=== PATIENT | female | born 1995 | race Caucasian/White ===

== ENCOUNTER 2024-09-15 00:08 | Day surgery (SDC) | payer BC, SELFPAY ==
[2024-09-04 13:43] VITALS: BMI 22.9
--- NOTE | 2024-09-04 14:13 | PC.NURSE ---
Report to the Outpatient Waiting Room, entrance under the green pavilion located off [facility], at time _0730 on date __09/15/24 . Planned Procedure Time: __929 .? Time changes happen often and if your time is changed the preop area will call you the afternoon before. - You and your visitor will be asked to self-screen and do not enter if you have any COVID symptoms. Please call surgeon if you need to reschedule. - A mask is optional within the hospital at this time. Patients may have clear liquids (water, carbonated beverages, clear teas, apple juice) until 3 hours prior to surgery with a maximum of 20 ounces. - No food from midnight until time of surgery and no smoking. This includes no chewing gum, candy or mints. - Infants may have breast milk until 4 hours before surgery, infant formula 6 hours prior to surgery. - Children will be allowed to drink immediately following surgery.? If applicable, please bring a bottle or sippy cup to assist with drinking. Juice, water, soda, and popsicles are readily available.? For infants on formula, please bring formula the day of surgery.? Pacifiers are allowed. Take only the following medications with a SIP of water on the morning of surgery: _Buspirone, and sertraline DO NOT STOP ANY OF YOUR OTHER PRESCRIPTION MEDICATIONS PRIOR TO SURGERY EXCEPT THE FOLLOWING Medications to discontinue per physician ___Vitamins and supplements 3 days prior Please no make-up, nail cymraes, hairspray, perfume, deodorant, or body powder the day of surgery.? No jewelry (including any body piercings) or valuables the day of surgery, leave them at home.? Please take a shower or bath the night before, or the morning of, surgery with an antibacterial soap.? Wear comfortable, loose fitting clothing.? Children are encouraged to wear pajamas. - Jewelry must be removed prior to entering the operating room.? Rings and piercings that are not removed may be cut off. - The hospital will not accept responsibility for valuables.? - Please leave all valuables, including medications, at home the day of surgery. If you are going home after surgery, a licensed route cdl driver must drive you home.? - NO public transportation without another adult if you receive anesthesia. - We recommend that an adult stay with you for 24 hours following discharge. - We also recommend that you do not drive, make important decision, drink alcoholic beverages, or take any drugs that were not prescribed by your health care provider for at least 24 hours after your discharge time. For Pediatric surgeries, we recommend two adults accompany the child home. Hold all vitamins and supplements for 3 days per anesthesiologist. Follow any additional instructions given to you from your surgeon. Telephone instructions given to _Audra and asked if any additional questions and then verbalized understanding. Patient advised to call surgeon office or pre surgery nurse liaison [phone] if any additional questions.
--- NOTE | 2024-09-12 12:28 | PM.IMHP ---
H&P: HPI History of Present Illness Date/Time: 09/12/24 12:28 Chief Complaint: irregular bleeding and thickened endometrium Narrative: this is a 28-year-old 0 admitted for hysteroscopy dilatation curettage secondary to excessive heavy bleeding. Ultrasound shows thickened endometrium. She is offered hysteroscopy and dilatation curettage. Risks and benefits reviewed including not exclusive of , aspiration pneumonia, bleeding, transfusion, perforation injury to bowel, bladder, ureters, or other internal organs with need for open laparotomy. She received the [employer] handouts entitled hysteroscopy as well as dilatation curettage. She had all questions answered. She asked to proceed Review of Systems Review of Systems: All systems reviewed & are unremarkable except as noted in HPI and below PMFSH Social History Social History Smoking status: Never smoker Living arrangements: with family Spiritual care concerns: No Meds Home Medications and Allergies Home Medications ?Medication ?Instructions ?Recorded ?Confirmed ?Type Lactobacillus rhamnosus GG 10 1 cap PO DAILY 09/04/24 09/04/24 History billion cell capsule (Culturelle) buspirone 10 mg tablet 10 mg PO BID 09/04/24 09/04/24 History cetirizine 10 mg tablet 10 mg PO DAILY 09/04/24 09/04/24 History cranberry 500 mg capsule 500 mg PO DAILY 09/04/24 09/04/24 History lysine 500 mg tablet 500 mg PO DAILY 09/04/24 09/04/24 History multivitamin 1 tablet PO DAILY 09/04/24 09/04/24 History sertraline 50 mg tablet 50 mg PO DAILY 09/04/24 09/04/24 History Allergies Allergy/AdvReac Type Severity Reaction Status Date / Time Penicillins Allergy Mild rash Verified 09/04/24 13:59 Exam Const: General: cooperative, healthy appearing, comfortable and average body habitus Orientation/consciousness: oriented to person, oriented to place and oriented to time Resp: Effort & Inspection: normal respiratory effort Cardio: Rate: regular rate Rhythm: regular rhythm Heart sounds: S1 normal heart sound present and S2 normal heart sound present GI: Inspection: normal to inspection : External Female Exam: normal external appearance Speculum Exam - Vagina: normal appearance of the vagina Speculum Exam - Cervix: normal appearance of the cervix Bimanual exam- vagina & uterus: uterine shape normal Bimanual Exam- Adnexa, other: normal adnexae Assessment and Plan Assessment and plan (1) Excessive bleeding: Code(s): R58 - Hemorrhage, not elsewhere classified Status: Acute Plan proceed with hysteroscopy / dilatation and curettage
--- NOTE | 2024-09-15 07:16 | WPDHPUPDATE1 ---
History and Physical Update Update Date/Time: 09/15/24 07:16 History and Physical has been reviewed, including an updated exam of the patient. There are NO changes in the patient's condition. Risks, benefits, and alternatives have been discussed and questions answered. Patient agrees to proceed with procedure.
--- NOTE | 2024-09-15 07:59 | P.PNAN_ITS ---
Anes - Initial Pre Proc Eval Procedure: Operation Date: 09/15/24 09:30 Proposed Procedures p Hysteroscopy Dilation and Curettage - Calvin Bledsoe MD Date/Time: 09/15/24 07:59 Surgeon: Calvin Bledsoe MD Pre Op Diagnosis: Irg Bleeding, Dyspareunia Patient Data Age: 28 Gender: F Height: 1.78 m Weight: 72.57 kg Allergies Allergy/AdvReac Type Severity Reaction Status Date / Time Penicillins Allergy Mild rash Verified 09/04/24 13:59 Home Medications ?Medication ?Instructions ?Recorded ?Confirmed ?Type Lactobacillus rhamnosus GG 10 1 cap PO DAILY 09/04/24 09/04/24 History billion cell capsule (Culturelle) buspirone 10 mg tablet 10 mg PO BID 09/04/24 09/04/24 History cetirizine 10 mg tablet 10 mg PO DAILY 09/04/24 09/04/24 History cranberry 500 mg capsule 500 mg PO DAILY 09/04/24 09/04/24 History lysine 500 mg tablet 500 mg PO DAILY 09/04/24 09/04/24 History multivitamin 1 tablet PO DAILY 09/04/24 09/04/24 History sertraline 50 mg tablet 50 mg PO DAILY 09/04/24 09/04/24 History hydrocodone 5 mg-acetaminophen 325 1 tablet PO Q4H PRN pain #14 tabs 09/15/24 Rx mg tablet Patient hx anesthesia problems: none Family hx anesthesia problems: none Results Review: All pre-operative results and documents have been reviewed as part of the pre- operative evaluation. [facility] Past Medical History Medical History (Updated 09/15/24 @ 07:59 by Calvin Flores MD) Depression Social History Social History Smoking status: Never smoker Living arrangements: with family Spiritual care concerns: No Anes - Eval Final PreProcedure Day of Procedure 09/15/24 07:59 Patient weight: normal Heart: regular rate and rhythm Lungs: clear to auscultation Airway: Mallampati scale class II Neurological: alert and oriented Last oral intake: >/= 8 hours ASA classification: II Emergent: no Anesthetic plan: proceed Anesthesia type and monitoring: general GIVS and standard monitoring Results Review: All pre-operative results and documents have been reviewed as part of the pre- operative evaluation. Informed Consent: The patient's anesthetic plan and its attendant risks and benefits were discussed with the patient/family/POA. Questions were solicited and answers provided to the satisfaction of the patient/family/POA.
[2024-09-15 08:15] VITALS: BP 102/62; PULSE 73; RESP 14; TEMP 36.6; O2SAT 100
[2024-09-15] MEDS: LACTATED RINGERS 1,000 ML 30 ML IV CONT (08:15)
[2024-09-15] MEDS: ACETAMINOPHEN 500 MG TABLET 1000 MG PO (08:15)
[2024-09-15 08:22] LABS: BEDSIDEPREGUCG Negative (Negative)
[2024-09-15] MEDS: LIDOCAINE 1% LOCAL INJ 10 ML VIAL INFILTRATE (09:10)
--- NOTE | 2024-09-15 09:21 | W.PM.PROC2 ---
Procedure Note - Detailed Date of Procedure 09/15/24 Pre-op Diagnosis Irg Bleeding, Dyspareunia Post-op Diagnosis Other (Irregular bleeding with bicornuate uterus) Procedure Performed Hysteroscopy/dilatation curettage Surgeon Calvin Bledsoe MD Anesthesia MAC and Local Indications 28-year-old female with irregular bleeding Findings Small uterine septum was seen accounting for the thickening ultrasound. Description of Procedure Patient was prepped draped in normal sterile fashion placed in dorsal lithotomy position. Under excellent IV sedation weighted speculum placed in posterior fornix vagina. Anterior lip of the cervix grasped with single-tooth tenaculum. 2.5cc 1% xylocaine anesthesia placed at 2, 4, 8, 10:00 a.m. of the cervix. Uterus sounded to a 7.5cm noted be retroverted serial dilatation fragmented dilators performed followed by passage of the 5mm visualizing hysteroscope. A uterine septum could be seen 2 cavities. Each fallopian tube os appeared within normal limits the uterus was then scraped over the entire 360? is no other abnormalities were seen. The instruments withdrawn the patient went recovery in satisfactory condition. All sponge, needle, instrument counts were correct. There were no immediate complications Estimated Blood Loss 5 Drains No Packing No Pathology Yes Complications No immediate complications Condition Stable Disposition PACU
[2024-09-15 09:22] VITALS: BP 98/59; PULSE 72; RESP 16; O2SAT 100
[2024-09-15 09:50] VITALS: BP 103/62; PULSE 60; RESP 20
[2024-09-15 10:10] VITALS: BP 106/66; PULSE 60; RESP 20
== END 2024-09-15 10:18 | disposition home or self-care (01) ==
PROVIDERS: PCP Physician Assistant; Visit Provider Obstetrics & Gynecology
PROC: 0U5B8ZZ Destruction of Endometrium, Via Natural or Artificial Opening Endoscopic (ICD-10-PCS; CPT 58563; principal; 2024-09-15 09:30)
DX: N93.9 Abnormal uterine and vaginal bleeding, unspecified (principal); N94.10 Unspecified dyspareunia; Q51.28 Other and unspecified doubling of uterus; F32.A Depression, unspecified
CPT/HCPCS: 58558; 88305; A9270; J2003; J2250; J2405; J2704; J3010; J7120